=== PATIENT | male | born 1975 | race Caucasian/White ===

== ENCOUNTER 2025-03-14 11:53 | Emergency (ER) | payer MEDICAID, OTHER ==
[~2025-03-14] VITALS: Ht 185.4 cm; Wt 101.0 kg
--- NOTE | 2025-03-14 12:18 | ED.PDOC ---
GI ASSESSMENT HPI Comments This is a 49 year-old male, with a PMHX of abd hernia, presents to the ED with a chief complaint of intermittent blood streaked stool as of X1 1/2 months ago. Patient reports additional RLQ abdominal pain as of last night, with no known alleviating factors. Patient reports blood is bright red in color, occasionally with bowel movements, with associated N and abdominal "pressure". Patient reports being recently seen at [facility] facility for the same complaint, with no relief to his symptoms reported. Patient additionally states he tested positive for COVID X2 days ago with cough and phlegm. Patient is taking Paxlovid for COVID symptoms and states he is not here to address the COVID sxs at this time. Patient has no further complaints at this time and otherwise denies dysuria, hematuria, chest pain, or back pain. Chief Complaint: GI Bleed Time Seen by MD: 12:07 Reviewed Notes: Nurses Notes, Medications, Allergies Allergies: Coded Allergies: NO KNOWN ALLERGIES (Unverified , 03/14/25) Information Source: Patient Mode of Arrival: Ambulatory Timing: Months Duration: Since onset Prehospital treatment: None Stool: Blood Streaked Severity: Moderate Associated sign and symptoms: Blood in Stool Past Medical History Past Medical History (Other): Hernia Surgical History (Other): Jaw Family History Family History: Reviewed,noncontributory to illness, No family hx of Cancer, No family hx of DM, No family hx of Heart sushma, No family hx of HTN, No family hx ofKidney sushma, No family hx of Liver sushma, No family hx of Lung sushma, No family hx of Stroke Social History Smoker: Non-Smoker Alcohol: Denies ETOH Use Drugs: Denies Drug Use Lives In: Home Constitutional: denies: chills, diaphoresis, fatigue, fever, malaise, sweats, weakness, others EENTM: denies: blurred vision, double vision, ear bleeding, ear discharge, ear drainage, ear pain, ear ringing, eye pain, eye redness, hearing loss, mouth pain, mouth swelling, nasal discharge, nose bleeding, nose congestion, nose pain, photophobia, tearing, throat pain, throat swelling, voice changes, others Respiratory: denies: cough, hemoptysis, orthopnea, SOB at rest, shortness of breath, SOB with excertion, stridor, wheezing, others Cardiovascular: denies: chest pain, dizzy spells, diaphoresis, Dyspnea on exertion, edema, irregular heart beat, left arm pain, lightheadedness, palpitations, PND, syncope, others Gastrointestinal: reports: abdominal pain, blood streaked bowels; denies: abdomen distended, constipated, diarrhea, dysphagia, difficulty swallowing, hematemesis, melena, nausea, poor appetite, poor fluid intake, rectal bleeding, rectal pain, vomiting, others Genitourinary: denies: burning, dysuria, flank pain, frequency, hematuria, incontinence, penile discharge, penile sore, pain, testicle pain, testicle swelling, urgency, others Neurological: denies: dizziness, fainting, headache, left sided numbness, left sided weakness, numbness, paresthesia, pre-existing deficit, right sided numbness, right sided weakness, seizure, speech problems, tingling, tremors, weakness, others Musculoskeletal: denies: back pain, gout, joint pain, joint swelling, muscle pain, muscle stiffness, neck pain, others Integumetry: denies: bruises, change in color, change in hair/nails, dryness, laceration, lesions, lumps, rash, wounds, others Allergic/Immunocompromised: denies: Difficulty Healing, Frequent Infections, Hives, Itching, others Hematologic/Lymphatic: denies: anemia, blood clots, easy bleeding, easy bruising, swollen glands, others Endocrine: denies: excessive hunger, excessive sweating, excessive thirst, excessive urination, flushing, intolerance to cold, intolerance to heat, unexplained weight gain, unexplained weight loss, others Psychiatric: denies: anxiety, bipolar disorder, depression, hopeless, panic disorder, schizophrenia, sleepless, suicidal, others All Other Systems: Reviewed and Negative Physical Exam General Appearance: No Apparent Distress, Obese HEENT: Other (Pupils and face symmetric. Moist mucous membranes.) Neck: Full Range of Motion, Normal Inspection Respiratory: Lungs Clear, No Accessory Muscle Use, No Respiratory Distress, Normal Breath Sounds Cardiovascular: No Edema, No JVD, Regular Rate/Rhythm Breast Exam: Deferred Gastrointestinal: RLQ, Soft, Tenderness Genitalia: Deferred Pelvic: Deferred Rectal: Deferred Extremities: Normal inspection, Normal range of motion, Non-tender, No pedal edema Musculoskeletal : Apperance: Normal Neurologic: Alert (Oriented x4), Normal Affect, Normal Mood, Other (Ambulatory) Cerebellar Function: NOT DONE Reflexes: NOT DONE Skin: Dry, Normal Color, Warm Lymphatic: NOT DONE Was a procedure done? Was a procedure done?: No GI differential Dx Differential Diagnosis: Diverticular disease, Gastritis/PUD, Gastroenteritis, GI hemorrhage, Inflammatory BD, Bacterial, Viral, Ischemic Bowel, Mass, Anemia, Other (Coagulopathy, colitis, proctitis, hemorrhoids, among others) X-Ray, Labs, Meds, VS Vital Signs Date Time Temp Pulse Resp B/P (MAP) Pulse Ox O2 Delivery O2 Flow Rate FiO2 03/14/25 12:54 98.1 61 16 146/80 (102) 98 98.1 03/14/25 12:54 61 16 98 Room Air 03/14/25 12:00 98.6 61 15 123/60 96 98.6 Lab Test 03/14/25 14:45 03/14/25 12:50 03/14/25 12:15 Range/Units Lactic Acid Level 1.5 2.1 *H 0.4-2.0 mmol/L White Blood Count 6.6 4.4-10.8 10^3/uL Red Blood Count 5.16 4.5-5.90 10^6/uL Hemoglobin 15.6 13.5-17.5 g/dL Hematocrit 45.4 41.0-53.0 % Mean Corpuscular Volume 88.0 80.0-100.0 fL Mean Corpuscular Hemoglobin 30.3 28.0-32.0 pg Mean Corpuscular Hemoglobin Concent 34.4 32.0-36.0 g/dL Red Cell Distribution Width 13.8 11.8-14.3 % Platelet Count 186 140-450 10^3/uL Mean Platelet Volume 10.7 6.9-10.8 fL Neutrophils (%) (Auto) 51.8 37.0-80.0 % Lymphocytes (%) (Auto) 35.7 10.0-50.0 % Monocytes (%) (Auto) 11.0 0.0-12.0 % Eosinophils (%) (Auto) 1.1 0.0-7.0 % Basophils (%) (Auto) 0.4 0.0-2.0 % Neutrophils # (Auto) 3.4 1.6-8.6 10 ^3/uL Lymphocytes # (Auto) 2.4 0.4-5.4 10 ^3/uL Monocytes # (Auto) 0.7 0-1.3 10 ^3/uL Eosinophils # (Auto) 0.1 0-0.8 10 ^3/uL Basophils # (Auto) 0 0-0.2 10 ^3/uL Nucleated Red Blood Cells 0.2 % Prothrombin Time 10.3 9.3-11.8 sec Prothrombin Time INR 0.97 0.9-1.15 Activated Partial Thromboplast Time 27.1 24.5-34.5 SEC Sodium Level 141 136-145 mmol/L Potassium Level 4.5 3.5-5.1 mmol/L Chloride Level 104 98-107 mmol/L Carbon Dioxide Level 27 20-31 mmol/L Anion Gap 10 5-15 Blood Urea Nitrogen 8 L 9-23 mg/dL Creatinine 1.07 0.700-1.30 mg/dL Glomerular Filtration Rate Calc 86 >90 mL/min BUN/Creatinine Ratio 7.5 L 10.0-20.0 Serum Glucose 151 H 74-106 mg/dL Calcium Level 9.5 8.7-10.4 mg/dL Urine Color Light-yellow Yellow Urine Clarity Clear Clear Urine pH 6.5 5.0-9.0 Urine Specific [place] 1.017 1.001-1.035 Urine Protein Negative Negative Urine Ketones Negative Negative Urine Blood Negative Negative /uL Urine Nitrite Negative Negative Urine Bilirubin Negative Negative Urine Urobilinogen Normal Negative mg/dL Urine Leukocyte Esterase Negative Negative /uL Urine RBC 1 0 - 3 /hpf Urine Microscopic WBC < 1 0-3 /HPF Urine Squamous Epithelial Cells None seen <5 /hpf Urine Bacteria None seen None Seen /hpf Urine Glucose 3+ H Normal mg/dL Current Medications Medications (Trade) Dose Ordered Sig/Jayson Route Start Time Stop Time Status Last Admin Ondansetron HCl (Zofran) 4 mg ONCE ONCE IV 03/14/25 12:30 03/14/25 12:31 DC 03/14/25 13:01 Pantoprazole Sodium (Protonix) 40 mg ONCE ONCE IV 03/14/25 12:30 03/14/25 12:31 DC 03/14/25 13:01 Sodium Chloride 1,000 ml @ 1,000 mls/hr Q1H ONCE IV 03/14/25 12:30 03/14/25 13:29 DC 03/14/25 13:00 [facility] [id number] [place] [id number] Ph: [phone] DIAGNOSTIC IMAGING Diagnostic Imaging Report : [id number] Signed PATIENT: JEANNINE KENT ACCT: [id number] UNIT: [id number] : 1975 LOC: ER ROOM / BED: / AGE / SEX: 49 / M ADM STATUS: REG ER SERVICE 1216 ORDERING PHYSICIAN: LEA FAUSTIN MD PROCEDURE(s): ABPL - CT AB PEL WO CON-NO ORAL OR IV REASON: blood in stool, RLQ pain ORDER NUMBER(s): [id number], ACCESSION NUMBER(s): [id number] COMPUTERIZED TOMOGRAPHY ABDOMEN AND PELVIS WITHOUT CONTRAST REASON FOR EXAM: blood in stool, RLQ pain. Abdominal pain. COMPARISON: None TECHNIQUE: Spiral scans were acquired from the diaphragm to the symphysis pubis without intravenous contrast administration. 2-D coronal and sagittal reformat dash images were provided. Radiation optimization: All CT scans at this facility use at least one of these dose optimization techniques: Automated exposure control mA and/or kV adjustment per patient size (includes targeted exams where dose is matched to clinical indication) or iterative reconstruction. RADIATION DOSE: CTDI: 20.46 mGy DLP: 1198.85 mGy-cm FINDINGS: There is subtle focal nodular airspace disease at the periphery of the right middle lobe most consistent with focal pneumonia. There is no pleural effusion. There is no pericardial effusion. The spleen is not enlarged. The liver is normal in size and contour. The liver is diffusely hypoattenuating. There is focal fatty sparing in segment 4B of the liver. The gallbladder is distended. There is no pericholecystic edema. No calcified gallstone is identified. Unenhanced appearance of the pancreas is grossly unremarkable. Evaluation of the abdominal organs is suboptimal in the absence of intravenous contrast. The adrenal glands are normal. The kidneys are similar in size. There is no hydronephrosis of either kidney. No renal, ureteral, or bladder calculus is identified. The urinary bladder is decompressed and is not well evaluated on this study. The prostate and seminal vesicles are within normal limits. There is no free fluid in the abdomen or pelvis. No pathologic lymphadenopathy is identified by size criteria. There is no abdominal aortic aneurysm. The colonic stool burden is small. The appendix is normal. There is no pathologic distention of the small bowel. There is old healed fracture of the left 10th rib. No acute osseous abnormality is identified. IMPRESSION: Evaluation of the abdominal organs is suboptimal in the absence of intravenous contrast. The liver is diffusely hypoattenuating which may be secondary to steatosis or another diffuse hepatic process. Correlate clinically and with liver function tests. The appendix is normal. X-Ray, Labs, Meds, VS Comment 49-year-old male with a history of abdominal hernia complaining of bright red blood in his stool intermittently for the past month and a half, recurring this morning, associated with right lower quadrant pain and nausea Vitals unremarkable Exam remarkable for right lower quadrant tenderness to palpation Rhythm strip independently interpreted by me: Sinus rhythm, rate 61, no ectopy. CT abdomen and pelvis IMPRESSION: Evaluation of the abdominal organs is suboptimal in the absence of intravenous contrast. The liver is diffusely hypoattenuating which may be secondary to steatosis or another diffuse hepatic process. Correlate clinically and with liver function tests. The appendix is normal. CBC, basic metabolic panel, coagulation panel reviewed and unremarkable. Lactate 2.1. Patient treated with the following in the ED: Morphine 4 mg IV, Zofran 4 mg IV, Protonix 40 mg IV, 1 L 0.9 normal saline IV bolus Re-evaluation, patient states pain has improved. Vitals were stable. Patient notes this is his 3rd visit to a hospital for evaluation of the bleeding without any definitive diagnosis. Plan was to admit the patient for GI evaluation and lactate trend. Prior to patient being evaluated by hospitalist, patient stated he would prefer to leave and follow-up with GI as an outpatient. I was not advised that the patient had signed out against medical advice until after the patient had left. Images Reviewed?: Images reviewed and evaluated by me Time of 1ST Reevaluation: 12:52 Reevaluation 1ST: Unchanged Patient Education/Counseling: Diagnosis, Treatment, Need For Follow Up Family Education/Counseling: No Family Present Medical Screening: No EMC Exist At This Time SEPSIS Sepsis Screen Date sepsis recognized/suspect: Mar 14, 2025 Time Sepsis recognized/suspect: 1202 Recent Procedure: No On Antibiotic Therapy: No Respiratory Rate >20: No Heart Rate >90: No Temp<36 C (96.8 F) or >38.3 C: No SBP <90 or MAP <65 mmHG: No New Acute Mental Status Change: No Is the patient on CPAP, BIPAP,: No Physician Orders Ct Ab Pel Wo Con-No Oral Or Iv (03/14/25 12:16) Vital Signs Date Time Temp Pulse Resp B/P (MAP) Pulse Ox O2 Delivery O2 Flow Rate FiO2 03/14/25 12:54 98.1 61 16 146/80 (102) 98 98.1 03/14/25 12:54 61 16 98 Room Air 03/14/25 12:00 98.6 61 15 123/60 96 98.6 Laboratory Tests Test 03/14/25 12:50 03/14/25 14:45 Lactic Acid Level 2.1 mmol/L (0.4-2.0) *H 1.5 mmol/L (0.4-2.0) White Blood Count 6.6 10^3/uL (4.4-10.8) Medications Medications Dose Ordered Sig/Jayson Route Start Time Stop Time Status Last Admin Dose Admin Ondansetron HCl 4 mg ONCE ONCE IV 03/14/25 12:30 03/14/25 12:31 DC 03/14/25 13:01 Pantoprazole Sodium 40 mg ONCE ONCE IV 03/14/25 12:30 03/14/25 12:31 DC 03/14/25 13:01 Sodium Chloride 1,000 ml @ 1,000 mls/hr Q1H ONCE IV 03/14/25 12:30 03/14/25 13:29 DC 03/14/25 13:00 Departure 1 Departure Time of Disposition: 13:00 Impression: Primary Impression: GI bleed Additional Impression: Elevated lactic acid level Disposition: LEFT AGAINST MEDICAL ADVICE Condition: Fair Critical Care Note Critical Care Time?: No Stability Stability form required: No Heart Score Heart Score: Heart Score Response (Comments) Value History N/A 0 EKG N/A 0 Age N/A 0 Risk Factors N/A 0 Troponin N/A 0 Total 0 I personally scribed for LEA FAUSTIN MD ([email or web address]) on 03/14/25 at 12:18. Electronically submitted by Jazz Carolina (CHRISTINE). I personally scribed for LEA FAUSTIN MD ([facility] on 03/14/25 at 12:26. Electronically submitted by Jazz [place] (CHRISTINE). I personally scribed for LEA FAUSTIN MD ([email or web address]) on 03/14/25 at 12:33. Electronically submitted by Jazz [place] (CHRISTINE). I personally scribed for LEA FAUSTIN MD ([facility] on 03/14/25 at 13:13. Electronically submitted by Jazz [place] (CHRISTINE). LEA FAUSTIN MD Mar 14, 2025 12:18
[2025-03-14 12:54] VITALS: BP 146/80; PULSE 61; RESP 16; TEMP 98.1; O2SAT 98
[2025-03-14 12:58] LABS: Urine Protein, UAD Negative (Negative)
[2025-03-14] MEDS: MORPHINE SULFATE 4 MG/ML SYR/VIAL IV ONE (12:59)
[2025-03-14] MEDS: SODIUM CHLORIDE 0.9% 1,000 ML IV ONE (13:00)
[2025-03-14] MEDS: PANTOPRAZOLE 40 MG/10 ML VIAL INJ IV ONE (13:01)
[2025-03-14] MEDS: ONDANSETRON HCL 4 MG/2 ML VIAL IV ONE (13:01)
--- NOTE | 2025-03-14 13:08 | DVH ---
COMPUTERIZED TOMOGRAPHY ABDOMEN AND PELVIS WITHOUT CONTRAST REASON FOR EXAM: blood in stool, RLQ pain. Abdominal pain. COMPARISON: None TECHNIQUE: Spiral scans were acquired from the diaphragm to the symphysis pubis without intravenous c ontrast administration. 2-D coronal and sagittal reformatted images were provided. Radiation optimiza tion: All CT scans at this facility use at least one of these dose optimization techniques: Automated exposure control mA and/or kV adjustment per patient size (includes targeted exams where dose is mat ched to clinical indication) or iterative reconstruction. RADIATION DOSE: CTDI: 20.46 mGy DLP: 1198.85 mGy-cm FINDINGS: There is subtle focal nodular airspace disease at the periphery of the right middle lobe most consist ent with focal pneumonia. There is no pleural effusion. There is no pericardial effusion. The spleen is not enlarged. The liver is normal in size and contour. The liver is diffusely hypoatte nuating. There is focal fatty sparing in segment 4B of the liver. The gallbladder is distended. Ther e is no pericholecystic edema. No calcified gallstone is identified. Unenhanced appearance of the pa ncreas is grossly unremarkable. Evaluation of the abdominal organs is suboptimal in the absence of in travenous contrast. The adrenal glands are normal. The kidneys are similar in size. There is no hydro nephrosis of either kidney. No renal, ureteral, or bladder calculus is identified. The urinary blad [place] is decompressed and is not well evaluated on this study. The prostate and seminal vesicles are w ithin normal limits. There is no free fluid in the abdomen or pelvis. No pathologic lymphadenopathy is identified by size criteria. There is no abdominal aortic aneurysm. The colonic stool burden is sm all. The appendix is normal. There is no pathologic distention of the small bowel. There is old heale d fracture of the left 10th rib. No acute osseous abnormality is identified. IMPRESSION: Evaluation of the abdominal organs is suboptimal in the absence of intravenous contrast. The liver is diffusely hypoattenuating which may be secondary to steatosis or another diffuse hepatic process. Correlate clinically and with liver function tests. The appendix is normal.
[2025-03-14 13:54] LABS: Hematocrit 45.4 % (41.0-53.0); Hemoglobin 15.6 g/dL (13.5-17.5); Mean Corpuscular Hemoglobin 30.3 pg (28.0-32.0); Mean Corpuscular Volume 88.0 fL (80.0-100.0); Nucleated Red Blood Cells % 0.2 %
[2025-03-14 14:06] LABS: INR 0.97 (0.9-1.15); Partial Thromboplastin Time 27.1 SEC (24.5-34.5); Prothrombin Time 10.3 sec (9.3-11.8)
[2025-03-14 14:13] LABS: Chloride 104 mmol/L (98-107); Potassium 4.5 mmol/L (3.5-5.1); Sodium 141 mmol/L (136-145)
[2025-03-14 14:14] LABS: Anion Gap 10 (5-15); Carbon Dioxide 27 mmol/L (20-31)
[2025-03-14 14:15] LABS: Calcium 9.5 mg/dL (8.7-10.4)
[2025-03-14 14:20] LABS: BUN/Creatinine Ratio 7.5 (10.0-20.0); Blood Urea Nitrogen 8 mg/dL (9-23); Glucose 151 mg/dL (74-106)
[2025-03-14 14:27] LABS: Lactic Acid w/Reflex 2.1 mmol/L (0.4-2.0)
== END 2025-03-14 18:16 | disposition left against medical advice (07) ==
LOC: ER 11:53
DX: K92.1 Melena (principal); E87.20 Acidosis, unspecified
CPT/HCPCS: 36415; 74176; 80048; 81001; 83605; 85025; 85610; 85730; 96361; 96374; 96375; 99285; J2405; J2470; J7030